=== PATIENT | female | born 1960 | race Caucasian/White ===

== ENCOUNTER 2021-01-22 06:10 | Day surgery (SDC) | payer OTHER, SELFPAY ==
[~2021-01-22] VITALS: Ht 165.1 cm; Wt 127.0 kg
[2021-01-22] MEDS ORDERED: ONDANSETRON HCL 4 MG/2 ML VIAL IVP ONE (07:00)
[2021-01-22] MEDS ORDERED: ONDANSETRON HCL 4 MG/2 ML VIAL ONE (07:08)
[2021-01-22] MEDS ORDERED: MIDAZOLAM HCL 5 MG/5 ML VIAL IVP ONE (07:45)
[2021-01-22] MEDS ORDERED: fentaNYL CITRATE/PF 100 MCG/2 ML AMP IVP ONE (07:45)
[2021-01-22] MEDS ORDERED: LIDOCAINE 2%, 20 ML MDV IM ONE (07:45)
[2021-01-22] MEDS ORDERED: NS IRRIG SOLN 1000 ML IR ONE ×2 (07:45)
[2021-01-22] MEDS ORDERED: SEVOFLURANE 15 MIN GAS INH ONE (07:45)
[2021-01-22] MEDS ORDERED: PROPOFOL 200MG/ 20ML VIAL (DIPRIVAN) IV ONE (07:45)
[2021-01-22] MEDS ORDERED: DEXAMETHASONE SOD PHOSPHATE 4 MG/ML VIAL IVP ONE (07:45)
[2021-01-22] MEDS ORDERED: LR 1,000 ML IV.SOLN IV ONE (07:45)
[2021-01-22] MEDS ORDERED: IBUPROFEN 800 MG TABLET PO PRN (08:45)
[2021-01-22] MEDS ORDERED: OXYCODONE/ACETAMINOPHEN 5-325 TABLET PO PRN ×2 (08:45)
[2021-01-22] MEDS ORDERED: ONDANSETRON HCL 4 MG/2 ML VIAL IVP PRN (08:45)
[2021-01-22] MEDS ORDERED: DEXAMETHASONE SOD PHOSPHATE 4 MG/ML VIAL IVP PRN (09:00)
[2021-01-22] MEDS ORDERED: fentaNYL CITRATE/PF 100 MCG/2 ML AMP IVP PRN (09:00)
[2021-01-22 11:06] VITALS: BP_SYST 114
== END 2021-01-22 10:10 | disposition home or self-care (01) ==
LOC: SDS 06:10 → SMU 06:11 → SDS 10:10
PROVIDERS: ATTEND Obstetrics & Gynecology
DX: N95.0 Postmenopausal bleeding (principal); R93.89 Abnormal findings on diagnostic imaging of other specified body structures; N84.0 Polyp of corpus uteri; Z20.822 Contact with and (suspected) exposure to COVID-19
CPT/HCPCS: 58558; 88305; C1819; J1100; J2001; J2250; J2405; J2704; J3010; J7120; U0003

== ENCOUNTER 2021-01-26 12:05 | Emergency (ER) | payer OTHER, SELFPAY ==
[~2021-01-26] VITALS: Ht 165.1 cm; Wt 127.0 kg
[2021-01-26 12:05] VITALS: BP_SYST 143
[2021-01-26 12:56] VITALS: BP_SYST 143
== END 2021-01-26 12:57 | disposition home or self-care (01) ==
LOC: SED 12:05
DX: R21 Rash and other nonspecific skin eruption (principal); T36.8X5A Adverse effect of other systemic antibiotics, initial encounter; I10 Essential (primary) hypertension; Z88.0 Allergy status to penicillin; Z88.5 Allergy status to narcotic agent; Z88.8 Allergy status to other drugs, medicaments and biological substances; Y92.89 Other specified places as the place of occurrence of the external cause
CPT/HCPCS: 99281